=== PATIENT | male | born 1995 | race American Indian/Alaskan Native ===

== ENCOUNTER 2020-05-05 13:27 | Emergency (ER) | payer SELFPAY ==
[2020-05-05 13:44] VITALS: BP 114/64
[2020-05-05] MEDS ORDERED: HYDROcodone/ACETAMINOPHEN 5-325 MG TAB PO ONE (14:29)
--- NOTE | 2020-05-05 15:12 | XRay Report ---
RIGHT FOREARM 2 VIEWS RIGHT HAND 3 VIEWS INDICATION: cut by glass mirror, multiple lacerations. COMPARISON: No relevant prior imaging study available. FINDINGS: Right forearm: No skeletal abnormality. There is bandaging along the skin adjacent to the distal radi us. Accounting for this, no radiodense foreign bodies are seen. Right hand: No acute skeletal abnormality. No radiodense foreign bodies are seen. IMPRESSION: 1. No acute findings. Repeat imaging after removal of bandaging would be useful to exclude small sup erficial foreign bodies in the soft tissues adjacent to the distal radius. Signer Name: Sabino Perez MD Signed: 05/05/2020 3:07 PM Workstation Name: [id number]
--- NOTE | 2020-05-05 15:23 | Emergency Department Report ---
- General Chief Complaint: Wound/Laceration Stated Complaint: CUT ON HAND Time Seen by Provider: 05/05/20 14:12 Source: patient Mode of arrival: Ambulatory Limitations: No Limitations - History of Present Illness Initial Comments: Patient is a 24-year-old male presents emergency room with complaints of multiple lacerations to the right arm that occurred just prior to arrival. Ashu underwood states that he got some bad news and then was swinging his arms around and hit a mirror and had blood all over his hand. He denies any numbness or weakness. He is able to move the hand and fingers. He states he had a tetanus immunization approximately 2 months ago. No past medical history. No allergies to medications. - Related Data Previous Rx's Medication Instructions Recorded Last Taken Type Ibuprofen [Motrin 600 MG tab] 600 mg PO Q8H PRN #14 tablet 05/05/20 Unknown Rx cephALEXin [Keflex] 500 mg PO QID 7 Days #28 cap 05/05/20 Unknown Rx Allergies Allergy/AdvReac Type Severity Reaction Status Date / Time No Known Allergies Allergy Verified 05/05/20 13:34 ED Review of Systems ROS: Stated complaint: CUT ON HAND Other details as noted in HPI Comment: All other systems reviewed and negative ED Past Medical Hx - Past Medical History Previous Medical History?: No - Surgical History Past Surgical History?: Yes Additional Surgical History: surgery to left flank as an - Medications Home Medications: Home Medications Medication Instructions Recorded Confirmed Last Taken Type Ibuprofen [Motrin 600 MG tab] 600 mg PO Q8H PRN #14 tablet 05/05/20 Unknown Rx cephALEXin [Keflex] 500 mg PO QID 7 Days #28 cap 05/05/20 Unknown Rx ED Physical Exam - General Limitations: No Limitations General appearance: alert, in no apparent distress - Head Head exam: Present: atraumatic, normocephalic - Eye Eye exam: Present: normal appearance - ENT ENT exam: Present: mucous membranes moist - Extremities Exam Extremities exam: Present: other (4 cm laceration present to the right thumb to the right wrist on the anterior surface, 1 cm laceration to the right anterior forearm, 1 cm laceration present to the right posterior forearm, no foreign body visualized, no muscle or tendon involvement, FROM of RUE, full thumb adduction, abduction, opposition, neurovascularly intact, multiple abrasions to the right hand, fingers, and wrist) - Neurological Exam Neurological exam: Present: alert, oriented X3 - Psychiatric Psychiatric exam: Present: normal affect, normal mood - Skin Skin exam: Present: warm, dry ED Course Vital Signs 05/05/20 13:43 Temperature 98.2 F Pulse Rate 87 Respiratory 18 Rate Blood Pressure 114/64 [Right] O2 Sat by Pulse 98 Oximetry - Laceration /Wound Repair Right Arm Wound Location: upper extremity (three lacerations present, right thumb to right wrist anterior surface, anterior forearm, posterior forearm) Wound Length (cm): 4 Wound's Depth, Shape: superficial Wound Explored: clean Irrigated w/ Saline (ccs): 500 Betadine Prep?: Yes Anesthesia: 1% Lidocaine Volume Anesthetic (ccs): 5 Wound Debrided: extensive Wound Repaired With: sutures Suture Size/Type: 4:0, proline Number of Sutures: 10 Layer Closure?: No Sterile Dressing Applied?: Yes Progress: Wounds irrigated with saline and thoroughly scrubbed with Betadine, there are 3 lacerations present, 5 cc total of 1% lidocaine without epinephrine used as anesthetic, Betadine prep again, sterile drapes applied, 4-0 Prolene used for skin closure, 10 total sutures placed, there are 7 present to the right hand, two present to the right anterior forearm, one present to the right posterior forearm, patient tolerated well, no complications, bleeding controlled, sterile dressing applied ED Medical Decision Making - Radiology Data Radiology results: report reviewed RIGHT FOREARM 2 VIEWS RIGHT HAND 3 VIEWS INDICATION: cut by glass mirror, multiple lacerations. COMPARISON: No relevant prior imaging study available. FINDINGS: Right forearm: No skeletal abnormality. There is bandaging along the skin adjacent to the distal radius. Accounting for this, no radiodense foreign bodies are seen. Right hand: No acute skeletal abnormality. No radiodense foreign bodies are seen. IMPRESSION: 1. No acute findings. Repeat imaging after removal of bandaging would be useful to exclude small superficial foreign bodies in the soft tissues adjacent to the distal radius. Signer Name: Sabino Perez MD Signed: 05/05/2020 3:07 PM Workstation Name: [id number] Transcribed By: NAUN Dictated By: Sabino Perez MD Electronically Authenticated By: Sabino Perez MD Signed Date/Time: 05/05/20 1507 DD/ 1505 TD/TT: - Medical Decision Making Patient is a 24-year-old male presents emergency room with complaints of multiple lacerations to the right arm that occurred just prior to arrival. Patient states that he got some bad news and then was swinging his arms around and hit a mirror and had blood all over his hand. He denies any numbness or weakness. He is able to move the hand and fingers. He states he had a tetanus immunization approximately 2 months ago. No past medical history. No allergies to medications. Vitals are normal. On exam: 4 cm laceration present to the right thumb to the right wrist on the anterior surface, 1 cm laceration to the right anterior forearm, 1 cm laceration present to the right posterior forearm, no foreign body visualized, no muscle or tendon involvement, FROM of RUE, full thumb adduction, abduction, opposition, neurovascularly intact, multiple a brasions to the right hand, fingers, and wrist. XR right hand/forearm: 1. No acute findings. Repeat imaging after removal of bandaging would be useful to exclude small superficial foreign bodies in the soft tissues adjacent to the distal radius. Wounds irrigated with saline and thoroughly scrubbed with Betadine, probed for foreign bodies and none were present on examination, lacerations repaired per procedure note. Patient given pain medication. Patient given prescription for Keflex and ibuprofen. Advised patient Please take medication as prescribed. Please keep area clean, dry, covered. May wash with antibacterial soap and water and immediately dry. No hot tub, no pool, no soaking water. Follow-up with your primary care doctor for reexamination. Sutures need to be removed within 10 to 14 days may have this done at primary care doctor, urgent care, or return to the emergency room. Return to emergency room for any new or worsening symptoms. Critical care attestation.: If time is entered above; I have spent that time in minutes in the direct care of this critically ill patient, excluding procedure time. ED Disposition Clinical Impression: Lacerations of multiple sites of right arm Qualifiers: Encounter type: initial encounter Qualified Code(s): S41.111A - Laceration without foreign body of right upper arm, initial encounter Abrasion of multiple sites of right upper arm Qualifiers: Encounter type: initial encounter Qualified Code(s): S40.811A - Abrasion of right upper arm, initial encounter Disposition: -01 TO HOME OR SELFCARE Is pt being admited?: No Does the pt Need Aspirin: No Condition: Stable Instructions: Suture Care (ED), Laceration (ED), Abrasion (ED) Additional Instructions: Please take medication as prescribed. Please keep area clean, dry, covered. May wash with antibacterial soap and water and immediately dry. No hot tub, no pool, no soaking water. Follow-up with your primary care doctor for reexamination. Sutures need to be removed within 10 to 14 days may have this done at primary care doctor, urgent care, or return to the emergency room. Return to emergency room for any new or worsening symptoms. Prescriptions: cephALEXin [Keflex] 500 mg PO QID 7 Days #28 cap Ibuprofen [Motrin 600 MG tab] 600 mg PO Q8H PRN #14 tablet PRN Reason: Pain Referrals: PRIMARY CARE, [Primary Care Provider] - 2-3 Days Time of Disposition: 16:17 Print Language: SAMOAN
[2020-05-05] MEDS ORDERED: SODIUM CHLORIDE 0.9% IRR 500 ML BOTTLE IR ONE (15:33)
[2020-05-05] MEDS ORDERED: SODIUM CHLORIDE IRRI 500 ML 500 ML IR ONE (15:34)
== END 2020-05-05 17:46 | disposition home or self-care (01) ==
LOC: ED 13:27
DX: S61.011A Laceration without foreign body of right thumb without damage to nail, initial encounter (principal); S61.511A Laceration without foreign body of right wrist, initial encounter; S40.811A Abrasion of right upper arm, initial encounter; W25.XXXA Contact with sharp glass, initial encounter; Y93.89 Activity, other specified; Y92.89 Other specified places as the place of occurrence of the external cause; Y99.8 Other external cause status
CPT/HCPCS: 99283